=== PATIENT | female | born 1975 | race Caucasian/White ===

== ENCOUNTER 2017-12-03 17:51 | Day surgery (SDC) | payer BC ==
[2017-12-03] MEDS ORDERED: cefOXitin 1 GM in Premix Bag 1 BAG IV ONE (17:55)
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
[2017-12-03] MEDS ORDERED: HYDROmorphone 2 MG/ML SDV IVPUSH ONE (18:08)
[2017-12-03] MEDS: Lactated Ringers 1,000 ML IV SCH (18:38)
[2017-12-03] MEDS ORDERED: fentaNYL 100 MCG/2 ML SDV IV ONE (20:30)
[2017-12-03] MEDS ORDERED: diphenhydrAMINE 50 MG/ML SDV IV ONE (20:30)
[2017-12-03] MEDS ORDERED: Succinylcholine 200 MG/10 ML MDV IV ONE (20:30)
[2017-12-03] MEDS ORDERED: Dexamethasone 4 MG/ML 5 ML MDV IVPUSH ONE (20:30)
[2017-12-03] MEDS ORDERED: Lactated Ringers 1,000 ML IV ONE (20:30)
[2017-12-03] MEDS ORDERED: Midazolam 1 MG/ML 2 ML SDV IV ONE (20:30)
[2017-12-03] MEDS ORDERED: Neostigmine Methylsulfate 10 MG/10 ML MDV IVPUSH ONE (20:30)
[2017-12-03] MEDS ORDERED: Propofol 200 MG/20 ML SDV IV ONE (20:30)
[2017-12-03] MEDS ORDERED: Rocuronium 100 MG/10 ML MDV IV ONE (20:30)
[2017-12-03] MEDS ORDERED: Ketorolac 30 MG/ML SDV IVPUSH ONE (20:30)
[2017-12-03] MEDS ORDERED: Glycopyrrolate 0.2 MG/ML 2 ML SDV IV ONE (20:30)
[2017-12-03] MEDS ORDERED: Ondansetron 4 MG/2 ML SDV IVPUSH ONE (20:30)
[2017-12-03] MEDS ORDERED: Lidocaine 1% with EPINEPHrine 1:100,000 20 ML MDV INJECT ONE (20:49)
[2017-12-03] MEDS ORDERED: Bupivacaine 0.5% 30 ML SDV INJECT ONE (20:49)
[2017-12-03] MEDS ORDERED: Morphine 2 MG/ML Syringe IVPUSH PRN (21:22)
[2017-12-03] MEDS ORDERED: Ondansetron 4 MG/2 ML SDV IVPUSH PRN (21:22)
--- NOTE | 2017-12-03 21:28 | PCM.OPNOTE ---
- General Post-Op/Procedure Note Date of Surgery/Procedure: 12/03/17 Operative Procedure(s): lap appendectomy Findings: appendicitis Pre Op Diagnosis: acute appendicitis Post-Op Diagnosis: Same Anesthesia Technique: General ET Tube, Local (5 ml 1 % ldio with epi 0.5% buvipicaine) Primary Surgeon: Uriah Evangelista Anesthesia Provider: Qing Mann Pathology: appendix EBL in mLs: 1 Complications: None Condition: Good Free Text/Narrative:: see dictation
[2017-12-03] MEDS ORDERED: Ketorolac 30 MG/ML SDV IVPUSH SCH (21:30)
[2017-12-04] MEDS: Lactated Ringers 1,000 ML IV SCH ×2 (00:14→08:24)
[2017-12-04] MEDS: cefOXitin 1 GM in Premix Bag 1 BAG IV SCH ×3 (01:02→13:00)
[2017-12-04] MEDS: Ketorolac 30 MG/ML SDV IVPUSH SCH ×2 (03:48→09:43)
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
--- NOTE | 2017-12-04 08:31 | OR ---
DATE OF OPERATION: 12/03/2017 SURGEON: Uriah Evangelista MD PROCEDURE PERFORMED: Laparoscopic appendectomy. PREOPERATIVE DIAGNOSIS: Acute appendicitis. POSTOPERATIVE DIAGNOSIS: Acute appendicitis. INDICATIONS FOR PROCEDURE: This is a 42-year-old white female who presented to the clinic today with a complaint of nausea and vomiting. Noted to have some abdominal pain, especially in the epigastrium and right lower quadrant. Noted to have a leukocytosis. CT scan was obtained with findings consistent with an early appendicitis. She was offered and accepted a laparoscopic appendectomy. DESCRIPTION OF PROCEDURE: After an excellent general anesthetic was administered, the patient was prepped and draped in the usual sterile manner. Due to the patient's previous umbilical hernia repair with mesh, the trocar placement was a little different than the standard approach. We started by infiltrating an area approximately 2 cm below the umbilicus with a 1:1 mixture of 1% lidocaine with epinephrine. A vertical midline incision was then made. Blunt dissection was carried out exposing the midline fascia and 2 stay sutures were placed on either side of the midline fascia, which was then elevated. Incision was made through the midline fascia and the abdominal cavity was entered. A 10.5-mm Dario trocar was then inserted and the patient's abdomen was insufflated to 15 mmHg pressure using carbon dioxide. Two 5-mm ports were placed, one in the right lower quadrant and one mirror-image to it in the left lower quadrant, due to the patient's body habitus. This allowed excellent visualization as well as manipulation of the patient's cecum. The patient was then placed into Trendelenburg position with an airplane to the left. The cecum was grasped and a markedly inflamed appendix was identified. A rent was made in the mesoappendix, which was then divided using a 2.5-mm Endo-ANDREINA load. An additional load was used to transect the base of the appendix as well. The specimen was passed into a specimen bag and delivered out through the umbilicus. The area was irrigated. No other abnormalities were noted and the trocars in the left and right lower quadrant were removed under direct visualization and the pneumoperitoneum was released. The midline defect was repaired with a [id number] 0 Vicryl and the 2 stay sutures were then tied to each other. The skin was closed with subcu 4-0 Vicryl. Needle, sponge, and instrument counts were reported as correct. The patient was taken to recovery room in good condition. /[id number] /RILEYL CC: Karlee Smith NP
[2017-12-04] MEDS ORDERED: Acetaminophen/HYDROcodone 325-5 MG Tab PO PRN (09:27)
[2017-12-04] MEDS ORDERED: Bisacodyl 10 MG Supp RECTAL ONE (12:47)
--- NOTE | 2017-12-04 12:48 | PCM.SN ---
- Free Text/Narrative Note: tolerating po will discharge.
== END 2017-12-04 14:50 | disposition home or self-care (01) ==
LOC: FB.MS 17:51 → FB.SDS 17:51 → FB.MS 21:35 → FB.SDS 21:35 → EDSTATUS 22:24 → FB.MS 12-04 14:50
PROVIDERS: ATTEND Surgery
DX: K35.80 Unspecified acute appendicitis (principal)
CPT/HCPCS: 36415; 44970; 85025; 88304; A9270; J0330; J0694; J1100; J1170; J1200; J1885; J2250; J2405; J2704; J2710; J3010; J7120; J3490